=== PATIENT | male | born 1935 | race Caucasian/White ===

== ENCOUNTER → 2019-02-11 | Day surgery (SDC) | payer OTHER ==
[~2019-02-11] VITALS: Ht 177.8 cm; Wt 95.3 kg
[~2019-02-11] MED LIST: ASPIRIN ADULT L81 M1 PO; B-123000 MCG SL; CLOPIDOGREL75 MG PO; FERROUS SULFAT325 MG PO; LISINOPRIL2.5 MG PO; METOPROLOL25 MG PO; ROSUVASTATIN CA10 MG PO; ZITHROMAX Z PA250 MG PO
--- NOTE | ~2019-02-11 | O ---
[place], [place] OPERATIVE NOTE NAME: [id number] UNIT #: [id number] ROOM: DOCTOR: BRIGID SOMMER MD BIRTHDATE: 35 DOS: 02/11/2019 PREOPERATIVE DIAGNOSIS: Cataract, right eye. POSTOPERATIVE DIAGNOSIS: Cataract, right eye. OPERATION: Extracapsular cataract extraction by phacoemulsification with posterior chamber intraocular lens implantation, right eye. ANESTHESIA: Monitored standby. OPERATIVE FINDINGS AND PROCEDURE: 2% Xylocaine topical anesthetic gel was applied to the eye in the preop area. The patient was taken to the operating room and prepped and draped in the standard fashion for sterile intraocular surgery. A time out procedure was performed verifying correct patient, correct site and corrects lens with Hayde Sommer M.D. The operating microscope was swung into position and the lid speculum was inserted. Using a Joie paracentesis blade, a paracentesis was made through clear cornea. A mixture of preservative free lidocaine 4% and epinephrine 1:1000 in balanced salt solution was injected into the anterior chamber. Viscoelastic was used to fill the anterior chamber. Using a metal keratome a 2.4 mm self-sealing clear corneal cataract incision was made temporally at the limbus. Using a pre-bent 25 gauge cystotome needle, a standard continuous curvilinear capsulorrhexis was performed. The anterior capsule was removed with forceps. The lens nucleus was hydrodissected and phacoemulsified in the posterior chamber. Cortical material was removed with the irrigation aspiration hand piece and the posterior capsule was then polished with a curet under irrigation. The posterior chamber and capsular bag were filled with viscoelastic. A posterior chamber intraocular lens manufactured by: [employer], Model #[id number] and 18.5 diopters in strength were then inserted into the posterior chamber and within the capsular bag using the lens cartridge and injector system. Viscoelastic was removed using the irrigation aspiration handpiece. The anterior chamber was filled with balanced salt solution through the paracentesis. Both the paracentesis site and cataract incisions were hydrated with BSS and verified to be water-tight and self-sealing. Cefuroxime 1 mg/0.1 mL was injected into the anterior chamber through the paracentesis site. The incision checked to be water-tight using a Weck-Ramandeep sponge. The integrity of the cataract wound and ocular tension were checked. Lid speculum and drapes were removed. The patient was transferred from the operating room to the recovery room in satisfactory condition. [place], [place] OPERATIVE NOTE NAME: ELAINA HUNT UNIT #: [id number] ROOM: DOCTOR: BRIGID SOMMER MD BIRTHDATE: [birth year] BRIGID SOMMER MD CM:OPRECORD:OPERATIVE NOTE [id number] BRIGID SOMMER MD 02/11/19 1602 interface
[2019-02-11 11:50] VITALS: BP 148/66
[2019-02-11 12:58] VITALS: BP 123/69
[2019-02-11 13:13] VITALS: BP 131/68
[2019-02-11 13:30] VITALS: BP 131/65
== END | disposition home or self-care (01) ==
LOC: SDC 02-09 14:00
DX: H25.811 Combined forms of age-related cataract, right eye (principal); I25.119 Atherosclerotic heart disease of native coronary artery with unspecified angina pectoris; E78.5 Hyperlipidemia, unspecified; I25.2 Old myocardial infarction; Z79.899 Other long term (current) drug therapy; Z98.890 Other specified postprocedural states

== ENCOUNTER → 2019-05-06 | Day surgery (SDC) | payer OTHER ==
[~2019-05-06] VITALS: Ht 177.8 cm; Wt 95.3 kg
--- NOTE | ~2019-05-06 | O ---
[place], [place] OPERATIVE NOTE [facility]UN[id number] UNIT #: [id number] ROOM: DOCTOR: BRIGID SOMMER MD BIRTHDATE: [birth year] DOS: 05/06/2019 PREOPERATIVE DIAGNOSIS: Cataract, left eye. POSTOPERATIVE DIAGNOSIS: Cataract, left eye. OPERATION: Extracapsular cataract extraction by phacoemulsification with posterior chamber intraocular lens implantation, left eye. ANESTHESIA: Monitored standby. OPERATIVE FINDINGS AND PROCEDURE: 2% Xylocaine topical anesthetic gel was applied to the eye in the preop area. The patient was taken to the operating room and prepped and draped in the standard fashion for sterile intraocular surgery. A time out procedure was performed verifying correct patient, correct site and corrects lens with Hayde Sommer M.D. The operating microscope was swung into position and the lid speculum was inserted. Using a Joie paracentesis blade, a paracentesis was made through clear cornea. Viscoelastic was used to fill the anterior chamber. Using a metal keratome a 2.4 mm self-sealing clear corneal cataract incision was made temporally at the limbus. Using a pre-bent 25 gauge cystotome needle, a standard continuous curvilinear capsulorrhexis was performed. The anterior capsule was removed with forceps. The lens nucleus was hydrodissected and phacoemulsified in the posterior chamber. Cortical material was removed with the irrigation aspiration hand piece and the posterior capsule was then polished with a curet under irrigation. The posterior chamber and capsular bag were filled with viscoelastic. A posterior chamber intraocular lens manufactured by: [employer], Model #[id number], and 19.0 diopters in strength were then inserted into the posterior chamber and within the capsular bag using the lens cartridge and injector system. Viscoelastic was removed using the irrigation aspiration handpiece. The anterior chamber was filled with balanced salt solution through the paracentesis. Both the paracentesis site and cataract incisions were hydrated with BSS and verified to be water-tight and self-sealing. Cefuroxime 1 mg/0.1 mL was injected into the anterior chamber through the paracentesis site. The incision checked to be water-tight using a Weck-Ramandeep sponge. The integrity of the cataract wound and ocular tension were checked. Lid speculum and drapes were removed. [place], [place] OPERATIVE NOTE NAME: ELAINA HUNT UNIT #: [id number] ROOM: DOCTOR: BRIGID SOMMER MD BIRTHDATE: [birth year] BRIGID SOMMER MD CM:OPRECORD:OPERATIVE NOTE [id number] BRIGID SOMMER MD 05/06/19 1254 interface
[2019-05-06 10:04] VITALS: BP 151/63
[2019-05-06 11:26] VITALS: BP 150/79
[2019-05-06 11:38] VITALS: BP 148/77
[2019-05-06 11:56] VITALS: BP 157/79
== END | disposition home or self-care (01) ==
LOC: SDC 05-04 09:30
DX: H25.812 Combined forms of age-related cataract, left eye (principal); I10 Essential (primary) hypertension; I25.10 Atherosclerotic heart disease of native coronary artery without angina pectoris; E78.5 Hyperlipidemia, unspecified; I25.2 Old myocardial infarction; Z98.890 Other specified postprocedural states; Z79.899 Other long term (current) drug therapy

== ENCOUNTER 2020-10-09 13:34 | Emergency (ER) | payer OTHER ==
[~2020-10-09] VITALS: Ht 177.8 cm; Wt 86.2 kg
[2020-10-09] MEDS ORDERED: NEURONTIN300 MG PO (14:17)
[2020-10-09] MEDS ORDERED: HYDROCODONE-AC1 EAC1 PO ×2 (14:17→14:19)
[2020-10-09] MEDS ORDERED: CEPHALEXIN500 M1 PO (14:17)
== END 2020-10-09 14:43 | disposition home or self-care (01) ==
LOC: ED 13:34
DX: L02.811 Cutaneous abscess of head [any part, except face] (principal); Z79.899 Other long term (current) drug therapy; Z79.82 Long term (current) use of aspirin; Z98.890 Other specified postprocedural states; Z87.442 Personal history of urinary calculi; Z95.818 Presence of other cardiac implants and grafts

== ENCOUNTER 2024-01-17 18:57 | Emergency (ER) | payer MEDICARE ==
[~2024-01-17] VITALS: Ht 182.8 cm; Wt 91.9 kg
[~2024-01-17 18:57] MED LIST changes: +CEPHALEXIN500 M1 PO; +HYDROCODONE-AC1 EAC1 PO; +NEURONTIN300 MG PO
== END 2024-01-17 22:55 ==
LOC: ED 18:57
DX: I46.9 Cardiac arrest, cause unspecified (principal); I25.2 Old myocardial infarction; I10 Essential (primary) hypertension; Z98.890 Other specified postprocedural states